=== PATIENT | male | born 1960 | race Caucasian/White ===

== ENCOUNTER 2020-06-14 12:04 | Emergency (ER) | payer BC, MEDICARE ==
[~2020-06-14] VITALS: Ht 180.3 cm; Wt 113.0 kg
[2020-06-14] MEDS ORDERED: ONDANSETRON PF 4 MG/2 ML VIAL. ONE (12:06)
[2020-06-14] MEDS ORDERED: IV NORMAL SALINE 1000ML BAG 1,000 ML IV ONE (12:15)
[2020-06-14] MEDS ORDERED: PROCHLORPERAZINE 10 MG/2 ML VIAL. IV ONE (12:15)
[2020-06-14] MEDS ORDERED: ONDANSETRON PF 4 MG/2 ML VIAL. IVP ONE (12:15)
[2020-06-14] MEDS ORDERED: diphenhydrAMINE 50 MG/ML VIAL IVP ONE (12:15)
--- NOTE | 2020-06-14 12:18 | RAD ---
EXAM: CT Head without IV contrast CLINICAL HISTORY: Reason: CODE STROKE / Spl. Instructions: / History: COMPARISON: None. TECHNIQUE: Routine CT of the head without contrast. PQRS compliance statement - One or more of the following individualized dose reduction techniques wer e utilized for this study: 1. Automated exposure control 2. Adjustment of the mA and/or kV according to patient size 3. Use of iterative reconstruction technique FINDINGS: There is no evidence of hemorrhage, mass or extra-axial fluid collection. Mauricio-white differentiation is maintained with no evidence of edema. There is no mass effect or shift of the intracranial structures. The ventricles, basilar cisterns and cortical sulci are normal in size and configuration for the wilton ents stated age. The cerebellum and brainstem are unremarkable. The calvarium demonstrates no evidence of fracture or focal lesion. There is normal aeration of the visualized paranasal sinuses and mastoid air cells. The visualized portions of the orbits are normal. IMPRESSION: 1. No evidence of acute intracranial hemorrhage. Findings discussed with emergency room physician Dr. Shi at 06/14/2020 12:12 PM. FOR INTERNAL CODING PURPOSES RESULT CODE: (C) Electronically signed by: Steven Barrett MD (06/14/2020 12:15 PM) [id number]
[2020-06-14] MEDS ORDERED: CONTRAST GIVEN. MC PRN (12:30)
[2020-06-14] MEDS ORDERED: IOHEXOL 350 MG/ML 100 ML VIAL. IV ONE (12:30)
[2020-06-14 12:32] LABS: BASO % 0 % (0-3); EOS % 0 % (0-3); HEMATOCRIT 43.6 % (39.0-53.0); LYMPH # 1.2 x10^3/uL (1.0-4.8); LYMPH % 13 % (24-48); MEAN CORPUSCULAR HEMOGLOBIN 32 pg (25-35); MEAN CORPUSCULAR HGB CONC 35 g/dL (31-37); MEAN CORPUSCULAR VOLUME 91 fL (79-100); MONO # 0.5 x10^3/uL (0.0-1.1); MONO % 5 % (0-9); NEUT # 7.7 x10^3/uL (1.8-7.7); NEUT % 81 % (31-73); PLATELET COUNT 212 x10^3/uL (140-400); RED BLOOD COUNT 4.77 x10^6/uL (4.30-5.70); RED CELL DISTRIBUTION WIDTH 13.2 % (11.5-14.5); WHITE BLOOD COUNT 9.5 x10^3/uL (4.0-11.0)
[2020-06-14 12:45] LABS: CALCIUM 8.6 mg/dL (8.5-10.1); CREATININE 1.4 mg/dL (0.7-1.3); GFR 52.1; POTASSIUM 3.9 mmol/L (3.5-5.1)
--- NOTE | 2020-06-14 12:47 | RAD ---
XR CHEST 1V History: Reason: stroke / Spl. Instructions: / History: Comparison: None. Findings: No consolidation or pleural effusion. Normal heart size. No pneumothorax. Impression: 1. No acute cardiopulmonary process. Electronically signed by: Klaus Dooley DO (06/14/2020 12:45 PM) [id number]
[2020-06-14 12:56] LABS: PROTHROMBIN TIME PATIENT 15.6 SEC (11.7-14.0)
[2020-06-14 13:00] VITALS: BP 140/87
--- NOTE | 2020-06-14 13:17 | RAD ---
CTA STROKE HEAD/NECK w/o History:Reason: dizziness, vomiting, ataxia, [id number] [phone] / Spl. Instructions: / Hist ory: Technique: After bolus of intravenous contrast, volumetric CT data acquisition was acquired of the he ad and neck. Multiplanar reconstruction images to include MIP and 3-D reconstruction images are submi tted. Exposure: One or more of the following individualized dose reduction techniques were utilized for thi s examination: 1. Automated exposure control 2. Adjustment of the mA and/or kV according to patient size 3. Use of iterative reconstruction technique. Comparison: June 14, 2020 CT abdomen Any determination of stenosis is based on NASCET criteria. Head CTA: ICA: No stenosis, occlusion or aneurysm. MCA: No stenosis, occlusion or aneurysm. BUTCH: No stenosis, occlusion or aneurysm. TRAIN ENGINEER: No stenosis, occlusion or aneurysm. Basilar artery: Filling defect within the basilar artery and the level of the superior cerebellar art eries with occlusion of the proximal aspects there is distal reconstitution of the superior cerebella r arteries. Additional irregularity of the proximal and mid basilar artery. Distal vertebral arteries: No stenosis, occlusion or aneurysm. Right vertebral artery terminates in p osterior inferior cerebellar artery. Patent superior sagittal, straight, transverse and sigmoid venous sinuses. CT angiogram neck: Aortic arch: Conventional arch anatomy. Common carotid arteries: No stenosis, occlusion or dissection. Internal carotid arteries: No stenosis, occlusion or dissection. External carotid arteries: Patent Vertebral arteries: Occlusion of the left proximal vertebral artery with reconstitution of the mid as pect via collaterals and retrograde filling. Imaged lung apices are unremarkable. Soft tissues appear normal. Bones: Multilevel cervical spondylosis most prominent C5-C6 and C6-C7. Impression: 1. Filling defect within the basilar artery at the level of the superior cerebellar arteries, concer loida for thrombus. 2. Occlusion of the left proximal vertebral artery with reconstitution, may relate to dissection. 3. Subtle hypoattenuation within the left superior cerebellum, may relate to ischemic changes. Recom mend MRI to further evaluate. FOR INTERNAL CODING PURPOSES Critical result: Findings discussed with Dr. Shi at 06/14/2020 1:08M. RESULT CODE: (C) Electronically signed by: Klaus Dooley DO (06/14/2020 1:14 PM) [id number]
--- NOTE | 2020-06-14 13:39 | ED.ADGEN ---
Past Medical History Past Medical History: Hypertension, Other Additional Past Medical Histor: covid Past Surgical History: No Surgical History Smoking Status: Never Smoker Alcohol Use: None General Adult EDM: Chief Complaint: NEURO SYMPTOMS/DEFICITS HPI: HPI: Patient is 59-year-old male presents to the emergency room complaining of headache, dizziness, vomiting, slurred speech. Patient states that last night he had onset of headache. He states that this is progressively gotten worse. He went to bed sometime last night after finishing driving. Patient drives an [address] with a partner. Patient states he woke up this morning and felt dizzy. He felt like if he just got some coffee and he would feel better. He states his symptoms got worse. He then started vomiting every time he moved. This started about 1 hour prior to arrival. Patient also started noticing that his speech was slurred. He feels like his arm and leg are heavy. He states he is able to use them they just feel abnormal. He also has some numbness in his left leg. Review of Systems: Review of Systems: Complete ROS is negative unless otherwise documented in HPI Current Medications: Current Medications Medications (Trade) Dose Ordered Sig/Bárbara Start Time Stop Time Status Last Admin Dose Admin Diphenhydramine HCl (Benadryl) 25 mg 1X ONCE 06/14/20 12:15 06/14/20 12:24 DC 06/14/20 12:36 25 MG Info (CONTRAST GIVEN -- Rx MONITORING) 1 each PRN DAILY PRN 06/14/20 12:30 06/16/20 12:29 Iohexol (Omnipaque 350 Mg/ml) 75 ml 1X ONCE 06/14/20 12:30 06/14/20 12:31 DC 06/14/20 12:35 75 ML Ondansetron HCl (Zofran) 4 mg 1X ONCE 06/14/20 12:15 06/14/20 12:24 DC 06/14/20 12:36 4 MG Prochlorperazine Edisylate (Compazine) 10 mg 1X ONCE 06/14/20 12:15 06/14/20 12:24 DC 06/14/20 12:36 10 MG Sodium Chloride 1,000 ml @ 1,000 mls/hr 1X ONCE 06/14/20 12:15 06/14/20 13:14 DC 06/14/20 12:34 1,000 MLS/HR Allergies: Allergies: Allergies Coded Allergies Type Severity Reaction Last Updated Verified No Known Drug Allergies 06/14/20 No Physical Exam: PE: General: Awake, alert, NAD. Well Nourished, well hydrated. Cooperative HEENT: Atraumatic, EOMI, PERRL, airway patent, moist oral mucosa Neck: Supple, trachea midline Respiratory: CTA bilaterally, normal effort, no wheezing/crackles CV: RRR, no murmur, cap refill <2 GI: Soft, nondistended, nontender, no masses MSK: No obvious deformities Skin: Warm, dry, intact Neuro: A&O x3, 5/ strength in BUE/BLE distally and proximally, right leg drift, CN 2-12 intact, dysarthria, slurred speech Psych: Normal affect, normal mood, not suicidal or homicidal Current Patient Data: Labs: Laboratory Tests Test 06/14/20 12:16 White Blood Count 9.5 x10^3/uL (4.0-11.0) Red Blood Count 4.77 x10^6/uL (4.30-5.70) Hemoglobin 15.0 g/dL (13.0-17.5) Hematocrit 43.6 % (39.0-53.0) Mean Corpuscular Volume 91 fL (79-100) Mean Corpuscular Hemoglobin 32 pg (25-35) Mean Corpuscular Hemoglobin Concent 35 g/dL (31-37) Red Cell Distribution Width 13.2 % (11.5-14.5) Platelet Count 212 x10^3/uL (140-400) Neutrophils (%) (Auto) 81 % (31-73) H Lymphocytes (%) (Auto) 13 % (24-48) L Monocytes (%) (Auto) 5 % (0-9) Eosinophils (%) (Auto) 0 % (0-3) Basophils (%) (Auto) 0 % (0-3) Neutrophils # (Auto) 7.7 x10^3/uL (1.8-7.7) Lymphocytes # (Auto) 1.2 x10^3/uL (1.0-4.8) Monocytes # (Auto) 0.5 x10^3/uL (0.0-1.1) Eosinophils # (Auto) 0.0 x10^3/uL (0.0-0.7) Basophils # (Auto) 0.0 x10^3/uL (0.0-0.2) Prothrombin Time 15.6 SEC (11.7-14.0) H Prothrombin Time INR 1.3 (0.8-1.1) H Activated Partial Thromboplast Time 28 SEC (24-38) Sodium Level 141 mmol/L (136-145) Potassium Level 3.9 mmol/L (3.5-5.1) Chloride Level 104 mmol/L (98-107) Carbon Dioxide Level 25 mmol/L (21-32) Anion Gap 12 (6-14) Blood Urea Nitrogen 19 mg/dL (8-26) Creatinine 1.4 mg/dL (0.7-1.3) H Estimated GFR (Cockcroft-Gault) 52.1 Glucose Level 150 mg/dL (70-99) H Calcium Level 8.6 mg/dL (8.5-10.1) Troponin I Quantitative 0.023 ng/mL (0.000-0.055) Laboratory Tests 06/14/20 12:16 Laboratory Tests 06/14/20 12:16 Vital Signs: Vital Signs Date Time Temp Pulse Resp B/P (MAP) Pulse Ox O2 Delivery O2 Flow Rate FiO2 06/14/20 13:00 69 16 140/87 (104) 98 Nasal Cannula 2.0 06/14/20 12:04 98.0 98.0 EKG: EKG: [] Heart Score: C/O Chest Pain: N/A Risk Factors: Risk Factors: DM, Current or recent (<one month) smoker, HTN, HLP, family history of CAD, obesity. Risk Scores: Score 0 - 3: 2.5% MACE over next 6 weeks - Discharge Home Score 4 - 6: 20.3% MACE over next 6 weeks - Admit for Clinical Observation Score 7 - 10: 72.7% MACE over next 6 weeks - Early Invasive Strategies Radiology/Procedures: Radiology/Procedures: [] Course & Med Decision Making: Course & Med Decision Making Pertinent Labs and Imaging studies reviewed. (See chart for details) Patient is a 59-year-old male who presents the emergency room with neurologic complaints. On exam, patient has patient has ataxia, slurred speech, dys arthria. Patient's presentation is concerning for acute stroke. Stroke protocol was set off and the patient was taken for a CT head. Glucose is normal at this time. Patient was evaluated by neurology. CBC, BMP, magnesium, troponin, EKG were ordered to evaluate for other causes of symptoms and risk factors for stroke. Patient's blood pressure is controlled at this time. Patient is not within the three-hour TPA window. Patient does not have any contraindication to tPA. Patient was not given TPA as he is outside the window. CT angiogram head and neck was ordered and shows signs of acute basilar artery occlusion. Immediately after receiving results transfer process was started to [facility] for neuro IR intervention. Patient has been accepted to . Have discussed this with the patient and his . They are in agreement with plan. Dragon Disclaimer: Dragon Disclaimer: This electronic medical record was generated, in whole or in part, using a voice recognition dictation system. Critical Care Time Critical Care: Authorized and Performed by: Lazaro Shi MD Total critical care time: approximately 50 minutes Due to a high probability of clinically significant, life threatening deterioration, the patient required my highest level of preparedness to intervene emergently and I personally spent this critical care time directly and personally managing the patient. This critical care time included obtaining a history; examining the patient; pulse oximetry; ventilator management if necessary; ordering and review of studies; arranging urgent treatment with development of a management plan; evaluation of patient's response to treatment; frequent reassessment; discussion with patient/family; and, discussions with other providers. This critical care time was performed to assess and manage the high probability of imminent, life-threatening deterioration that could result in multi-organ failure. It was exclusive of separately billable procedures and treating other patients and teaching time. Please see MDM section and the rest of the note for further information on patient assessment and treatment. 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
== END 2020-06-14 13:34 | disposition short-term general hospital (02) ==
LOC: ER 12:04
DX: I63.12 Cerebral infarction due to embolism of basilar artery (principal); I10 Essential (primary) hypertension; R47.81 Slurred speech; M54.2 Cervicalgia
CPT/HCPCS: 36415; 70450; 70496; 70498; 71045; 80048; 84484; 85025; 85610; 85730; 93005; 96361; 96374; 96375; 99291; J0780; J1200; J2405; J7030; Q9967